=== PATIENT | male | born 1985 | race Two or more races ===

== ENCOUNTER 2016-11-29 22:52 | Emergency (ER) | payer SELFPAY ==
[2016-11-29] MEDS ORDERED: [UNRECOGNIZED DRUG - REMARK] (23:10)
== END 2016-11-30 00:35 | disposition home or self-care (01) ==
LOC: SED 22:52
DX: L02.31 Cutaneous abscess of buttock (principal); L03.317 Cellulitis of buttock
CPT/HCPCS: 10060; 99283

== ENCOUNTER 2016-12-04 20:21 | Emergency (ER) | payer SELFPAY ==
[~2016-12-04 20:21] MED LIST: [UNRECOGNIZED DRUG - REMARK]
[2016-12-04] MEDS ORDERED: BACTRIM DS TAB1 EACH PO (20:42)
[2016-12-04] MEDS ORDERED: HYDROCODON-ACE1 EAC7 PO (20:42)
== END 2016-12-04 21:18 | disposition home or self-care (01) ==
LOC: SED 20:21
DX: L27.0 Generalized skin eruption due to drugs and medicaments taken internally (principal); T37.0X5A Adverse effect of sulfonamides, initial encounter; L02.31 Cutaneous abscess of buttock; Z90.49 Acquired absence of other specified parts of digestive tract
CPT/HCPCS: 99282